=== PATIENT | female | born 1955 | race Caucasian/White ===

== ENCOUNTER → 2022-02-03 09:02 | Outpatient (CLI) | payer MEDICARE, SELFPAY ==
--- NOTE | ~2022-02-03 | MR_ITS ---
EXAMINATION: MR knee RT wo con DATE: 02/03/2022 09:55 INDICATION: Right knee pain and swelling. TECHNIQUE: Magnetic resonance imaging (MRI) of the right knee was performed without intravenous contr ast. Sequences included axial PD-weighted FS FSE, coronal PD-weighted FSE and PD-weighted FS FSE, sag ittal PD-weighted FSE, and sagittal T2-weighted FS FSE. COMPARISON: None. FINDINGS: Medial compartment: Severe joint space narrowing. Diffuse cartilage loss. Radial tear of the meniscal body, with displace ment of meniscal tissue between the articular surfaces, and medially into the superomedial joint rece ss. Severe osteophytosis. Lateral compartment: Mild joint space narrowing. Severe osteophytosis. Patellofemoral compartment: Partial-thickness cartilage loss along the medial facet. Moderate osteophytosis. Quadriceps and alvarez lar tendons are intact. Ligaments and tendons: ACL, PCL, MCL, and LCL are intact. Fluid: Large volume joint fluid. Multiple loose bodies. Osseous/other: Reactive marrow changes in the medial compartment. Subcortical/subchondral cystic change in the fibul ar head. IMPRESSION: 1. Tricompartmental osteophytosis, severe in the medial compartment. 2. Medial meniscal tear, with meniscal extrusion and a flap of meniscal tissue interposed between the articular surfaces. 3. Multiple loose joint bodies. 4. Large right knee joint effusion. Reviewed, dictated and finalized at location K.
== END ==
DX: M25.461 Effusion, right knee (principal); M25.561 Pain in right knee; M17.0 Bilateral primary osteoarthritis of knee; M25.761 Osteophyte, right knee; S83.241A Other tear of medial meniscus, current injury, right knee, initial encounter; M23.41 Loose body in knee, right knee
CPT/HCPCS: 73721

== ENCOUNTER 2023-01-10 17:29 | Emergency (ER) | payer MEDICARE, SELFPAY ==
--- NOTE | ~2023-01-10 | XR_ITS ---
XR chest 2V DATE: 01/10/2023 19:26 INDICATION: Shortness of breath, lightheadedness, dizziness for about a week TECHNIQUE: PA and lateral views COMPARISON: None FINDINGS: Borderline heart size. Aortic calcification and mild unfolding. There is old pulmonary granulomatous disease. No pulmonary infiltrate or consolidation, pleural effus ion or pulmonary vascular congestion or pneumothorax is detected. Large hiatal hernia. IMPRESSION: Borderline heart size Aortic atherosclerosis Large hiatal hernia No active pulmonary disease Reviewed, dictated and finalized at location A.
--- NOTE | ~2023-01-10 | CT_ITS ---
EXAMINATION: CTA brain carotid DATE: 01/11/2023 01:05 INDICATION: Dizziness. Lightheadedness. TECHNIQUE: Computed tomographic angiography (CTA) of the head was performed without and with 100 mL O mnipaque-350 intravenous contrast. CTA of the neck was performed with intravenous contrast. Automated exposure control and iterative reconstruction technique were employed. The dose-length product was 1 616.30 mGy-cm. Maximum intensity projection and volume rendered 3D-reconstructions were created by chilango castillo technologist on a separate workstation. COMPARISON: None. FINDINGS: HEAD CTA: There is no intracranial hemorrhage, acute infarction, or abnormal intracranial mass lesion . The ventricles are normal in size. The orbits are normal. The paranasal sinuses are clear. The mast oid air cells are normal. The vertebral arteries are codominant. There is no significant stenosis of basilar artery or the posterior cerebral arteries. There is no significant stenosis of the intracrani al internal carotid arteries or anterior or middle cerebral arteries. The anterior communicating fern ry is normal. The posterior communicating arteries are normal. There is no aneurysm. NECK CTA: Calcified right lung nodules and calcified bilateral hilar and mediastinal lymph nodes are consistent with old granulomatous disease. There is mild scarring at the lung apices. There are nodul es in the thyroid measuring up to 9 mm, likely not clinically significant. There is plaque in the pro ximal internal carotid arteries. There is 0% stenosis of the proximal right internal carotid artery r elative to normal distal artery lumen diameter (NASCET criteria). There is 0% stenosis of the proxima l left internal carotid artery relative to normal distal artery lumen diameter. There is moderate cer vical spondylosis. IMPRESSION: 1. Normal brain. No aneurysm or significant intracranial arterial stenosis. 2. 0% stenosis of the proximal internal carotid arteries relative to normal distal artery lumen diame ters (NASCET criteria). Reviewed, dictated and finalized at location A. IMPRESSION: 1. Normal brain. No aneurysm or significant intracranial arterial stenosis. 2. 0% stenosis of the proximal internal carotid arteries relative to normal dis ildefonso artery lumen diameters (NASCET criteria).
[2023-01-10 17:39] VITALS: BP 133/99; PULSE 75; RESP 18; TEMP 36.6; O2SAT 100
--- NOTE | 2023-01-10 17:42 | ECG_ITS ---
Measurements Intervals [place] Rate: 76 P: 55 NE: 166 QRS: 34 QRSD: 82 T: 53 QT: 362 QTc: 409 Interpretive Statements SINUS RHYTHM NORMAL ECG NO PREVIOUS ECG AVAILABLE FOR COMPARISON Electronically Signed On 01-12-2023 14:46:41 CDT by Wang Navas M.D.
[2023-01-10 18:09] LABS: Basophils Absolute Auto 0.1 K/mm3 (0.0-0.1); Basophils Percent Auto 0.6 % (0.2-1.2); Eosinophils Absolute Auto 0.1 K/mm3 (0-0.3); Eosinophils Percent Auto 0.9 % (0-4.4); Hematocrit 40.9 % (37.0-47.0); Hemoglobin 12.5 g/dL (12.0-15.0); Immature Granulocyte Absolute 0.01 K/mm3 (0.00-0.031); Immature Granulocyte Percent A 0.1 % (0-0.5); Lymphocytes Absolute Auto 1.61 K/mm3 (0.9-3.2); Mean Corpuscular HGB Conc 30.6 g/dl (32-36); Mean Corpuscular Hemoglobin 25.7 pg (26-34); Mean Corpuscular Volume 84.2 fl (80-100); Mean Platelet Volume 9.7 fl (7.4-10.4); Monocytes Absolute Auto 0.8 K/mm3 (0.1-0.6); Monocytes Percent Auto 9.4 % (2.6-8.5); Neutrophils Absolute Auto 5.6 K/mm3 (1.3-6.7); Platelet Count Result 257 k/mm3 (150-375); Red Blood Count 4.86 M/mm3 (4.2-5.4); White Blood Count 8.1 K/mm3 (4.5-10.0)
[2023-01-10 18:18] LABS: Alanine Aminotransferase 29 U/L (6-35); Albumin Level 4.8 g/dL (3.5-5.1); Alkaline Phosphatase 104 U/L (38-126); Anion Gap 6 mmol/L (8-16); Aspartate Amino Transferase 35 U/L (14-36); Bilirubin,Total 0.5 mg/dL (0.2-1.3); Blood Urea Nitrogen 13 mg/dL (7-17); Calcium 9.7 mg/dL (8.4-10.2); Carbon Dioxide 30 mmol/L (22-30); Chloride 104 mmol/L (98-107); Estimated CRCL calculation 81 ml/min; Estimated Glomerular Filt Rate > 60; Glucose 92 mg/dL (65-110); Potassium 4.1 mmol/L (3.4-5.0); Sodium 140 mmol/L (137-145)
[2023-01-10 18:25] LABS: Appearance Urine Clear (Clear); Bilirubin Urine Negative (Negative); Blood Urine Negative (Negative); Color Urine Yellow (Yellow); Glucose Urine UA Negative (Negative); Ketones Urine Negative (Negative); Leukocyte Esterase Ur Negative LEU/UL (Negative); Nitrate Urine Negative (Negative); Protein Urine Negative (Negative); Specific Grav Ur 1.009 (1.001-1.035); Urobilinogen Urine 0.2 mg/dL (<2.0); pH Urine 5.5 (5.0-9.0)
[2023-01-10 18:28] LABS: Add Urine Microscopic? NO
[2023-01-10 20:22] VITALS: BP 156/90; PULSE 74; TEMP 36.6; O2SAT 99
--- NOTE | 2023-01-10 23:37 | ED.GENADULT ---
HPI - General Adult General Chief complaint: Dizziness Stated complaint: SOB Time Seen by Provider: 01/10/23 23:16 History of Present Illness HPI narrative: This is a 67-year-old female presenting ED with multiple complaints. She says that she just feels off. She says she has been intermittently lightheaded for the last week. She feels like she is dehydrated. She has had intermittent episodes of nausea but no vomiting. She has not had diarrhea but her stools field more loose than usual. She has had some very mild swelling around the knuckles of her hands bilaterally. She has woken up with a dry mouth in the morning. Patient has also noted that she has more dyspnea on exertion since she had her knee surgery this winter although she admits that she does not move around very much anymore. Patient also thinks that she may have some tingling when she pees but denies urinary urgency or frequency. She has no sick contacts at home. She is currently trying to rehab her home and is under significant amount of stress. Related Data Allergies Allergy/AdvReac Type Severity Reaction Status Date / Time Penicillins Allergy Unknown Hives Verified 01/11/23 01:12 cortisone Allergy Joint Pain Verified 01/11/23 01:12 REPLACED BY [facility] Surgical History Surgical History H/O knee surgery Exam Narrative: APPEARANCE: No apparent distress. Head: atraumatic. EYES: EOMI, NOSE: Atraumatic NECK: Trachea midline RESPIRATORY: No increased rate of breathing, Clear to auscultation bilaterally CARDIOVASCULAR: RRR, no peripheral edema ABDOMINAL: Non-distended, soft, nontender no guarding MUSCULOSKELETAl: No obvious deformities NEURO: Alert. Cranial nerves 2-12 grossly intact. Sensation light touch, motor function cerebellar function intact for 4 extremities. Gait exam was normal. SKIN:: Warm, dry. Normal color, PSYCHIATRIC: Normal affect Course Vital Signs Vital signs: Vital Signs Temperature 98 F 01/10/23 17:39 Pulse Rate 75 01/10/23 17:39 Respiratory Rate 18 01/10/23 17:39 Blood Pressure 133/99 H 01/10/23 17:39 Pulse Oximetry 100 01/10/23 17:39 Oxygen Delivery Room Air 01/10/23 17:39 Temperature 98 F 01/10/23 20:22 Pulse Rate 69 01/11/23 01:23 Respiratory Rate 15 01/11/23 01:23 Blood Pressure 163/101 H 01/11/23 01:23 Pulse Oximetry 100 01/11/23 01:23 Oxygen Delivery Room Air 01/10/23 17:39 Medical Decision Making [facility] Narrative Medical decision making narrative: -Presentation: this is a 67-year-old female presenting to ED with multiple complaints. Primary complaint being she feels off and has had intermittent episodes of dizziness. Screening lab work has been ordered. There is a strong history of carotid stenosis in her family so CTA of the head and neck been ordered. -DDX includes but is not limited to: Carotid stenosis, anxiety, dehydration, viral syndrome -Co-morbidities complicating care: recent knee surgery -Social determinants of health: patient lives alone, she is retired labor -External Chart Review: none -Hx from independent Sources: none -Discussion of Management/Consultants: none -Independent interpretation of studies: Patient refused COVID and flu. CBC was within normal limits. Metabolic panel was unremarkable. Troponin was within normal limits. Symptoms x2 days no need for repeat troponin Urinalysis was not indicative of infection. Independent EKG interpretation: Rhythm [sinus], Rate [76], [place] -[normal], PA -[normal], QRS [narrow], QTC [normal], T waves -[negative for concerning inversions], ST Segments - [Negative for concerning elevations] Final interpretations: [Normal Sinus Rhythm] chest x-ray showed no acute cardiopulmonary process. CT of the head and neck were unremarkable. Dx tests considered but not ordered: COVID and flu were ordered but the patient refused as she is concerned there [facility]
[2023-01-10 23:45] VITALS: BP 184/101; PULSE 65; RESP 16; O2SAT 100
[2023-01-11] VITALS: BP 187/103; PULSE 67; RESP 16; O2SAT 100
[2023-01-11 01:01] LABS: Troponin I 0.021 ng/mL (0.000-0.034)
[2023-01-11] MEDS: SODIUM CHLORIDE 0.9% IV 2,000 ML 999 ML IV CONT (01:16)
[2023-01-11 01:23] VITALS: BP 163/101; PULSE 69; RESP 15; O2SAT 100
[2023-01-11 02:30] VITALS: BP 158/92; PULSE 70; RESP 17; O2SAT 100
[2023-01-11 03:30] VITALS: BP 155/91; PULSE 71; RESP 13; O2SAT 97
[2023-01-11 04:00] VITALS: BP 135/77; PULSE 81; RESP 12; O2SAT 96
[2023-01-11 04:30] VITALS: BP 130/74; PULSE 90; RESP 16; O2SAT 97
== END 2023-01-11 05:30 | disposition home or self-care (01) ==
PROVIDERS: Emergency Medicine; Emergency Provider Emergency Medicine
DX: E86.0 Dehydration (principal); F41.9 Anxiety disorder, unspecified
CPT/HCPCS: 36415; 70496; 70498; 71046; 80053; 81003; 84484; 85025; 93005; 96360; 96361; 99283; J7030; Q9967